=== PATIENT | male | born 1985 | race African-American/Black ===

== ENCOUNTER 2019-07-10 09:17 | Emergency (ER) | payer MEDICAID ==
[~2019-07-10] VITALS: Ht 185.4 cm; Wt 77.1 kg
--- NOTE | 2019-07-10 09:21 | NUR ---
PT BIB SELF FOR SI, PLAN TO RUN IN FRONT OF A BUS. +AUDITORY HALLUCINATION. PT IS AAOX4, NOT IN RESPIRATORY DISTRESS, HOOKED TO MONITOR, KEPT RESTED AND COMFORTABLE, WILL CONTINUE TO MONITOR.
--- NOTE | 2019-07-10 09:36 | NUR ---
SEEN AND EXAMINED BY
--- NOTE | 2019-07-10 09:45 | NUR ---
IV LINE ESTABLISHED, BLOOD DRAWNED AND SENT TO LAB.
[2019-07-10 09:47] LABS: BASOPHILS % (AUTO) 0.6 % (0.0-2.0); EOSINOPHILS % (AUTO) 0.2 % (0.0-6.0); HEMATOCRIT 39 % (39-51); HEMOGLOBIN 12.9 g/dL (13.5-17.5); LYMPHOCYTES # (AUTO) 1.9 /CMM (0.8-4.8); LYMPHOCYTES % (AUTO) 23.1 % (20.0-44.0); MEAN CORPUSCULAR HGB CONC 33 g/dl (31.0-36.0); MEAN CORPUSCULAR VOLUME 84 fL (80-96); MONOCYTES # (AUTO) 0.5 /CMM (0.1-1.30); MONOCYTES % (AUTO) 6.4 % (2.0-12.0); NEUTROPHILS # (AUTO) 5.8 /CMM (1.8-8.9); NEUTROPHILS % (AUTO) 69.7 % (43.0-81.0); PLATELET COUNT (AUTO) 452 /CMM (150-450); RED BLOOD CELL COUNT(AUTO) 4.56 MIL/uL (4.5-6.0); WHITE BLOOD COUNT (AUTO) 8.3 K/uL (4.3-11.0)
--- NOTE | 2019-07-10 09:48 | NUR ---
URINAL GIVEN BUT UNABLE TO PROVIDE URINE SPECIMEN.
[2019-07-10 09:54] LABS: CALCIUM, SERUM 8.7 mg/dL (8.5-10.1); CARBON DIOXIDE 28 mmol/L (21-32); CHLORIDE 104 mmol/L (98-107); GLUCOSE 88 mg/dL (74-106); SODIUM SERUM 141 mmol/L (136-145); UREA NITROGEN, BLOOD 7 mg/dL (7-18)
[2019-07-10 10:00] LABS: ALANINE AMINOTRANSFERASE 14 U/L (12-78); ALBUMIN 3.7 g/dL (3.4-5.0); ALCOHOL, BLOOD 147 mg/dL (0-0); ALKALINE PHOSPHATASE 70 U/L (46-116); ASPARTATE AMINOTRANSFERASE 18 U/L (15-37); BILIRUBIN,DIRECT 0.2 mg/dL (0.0-0.2); BILIRUBIN,TOTAL 0.7 mg/dL (0.2-1.0); TOTAL PROTEIN, SERUM 8.1 g/dL (6.4-8.2)
[2019-07-10] MEDS ORDERED: IV NS 0.9% 1,000 ML BAG IV ONE (10:00)
[2019-07-10 10:01] LABS: ACETAMINOPHEN 0 ug/ml (10-30); SALICYLATE < 0.2 mg/dL (2.8-20.0)
--- NOTE | 2019-07-10 10:40 | NUR ---
PADMA MCCLAIN CRISIS TEAM AT BEDSIDE FOR EVAL.
--- NOTE | 2019-07-10 12:45 | NUR ---
URINE SPECIMEN COLLECTED AND SENT TO LAB.
[2019-07-10 12:53] LABS: APPEARANCE,URINE Clear (CLEAR); BILIRUBIN,URINE Negative (NEGATIVE); BLOOD, URINE Negative Ery/uL (NEGATIVE); COLOR,URINE Yellow (YELLOW); KETONES,URINE Negative (NEGATIVE); LEUKOCYTE ESTERASE ,URINE Negative (NEGATIVE); NITRITE, URINE Negative (NEGATIVE); PROTEIN,URINE Negative (NEGATIVE); UGLUCOSE Negative (NEGATIVE)
--- NOTE | 2019-07-10 12:55 | NUR ---
FOOD TRAY PROVIDED.
--- NOTE | 2019-07-10 17:33 | NUR ---
MEGHANN CRAMER [id number] TRIP#[id number]
--- NOTE | 2019-07-10 17:51 | NUR ---
CALLED [facility] INTAKE BUT NO ANSWER.
--- NOTE | 2019-07-10 17:59 | NUR ---
REPORT GIVEN TO JOHNY MARQUEZ OF [facility] FOR [facility].
[2019-07-10 19:05] VITALS: BP 121/74
== END 2019-07-10 19:06 ==
LOC: ER 09:17
DX: R45.851 Suicidal ideations (principal); F20.9 Schizophrenia, unspecified; F10.129 Alcohol abuse with intoxication, unspecified; T40.5X1A Poisoning by cocaine, accidental (unintentional), initial encounter; Y92.89 Other specified places as the place of occurrence of the external cause; Y90.6 Blood alcohol level of 120-199 mg/100 ml
CPT/HCPCS: 36415; 80048; 80076; 80305; 80307 ×3; 80329; 81001; 85025; 99285; G0480; J7030 ×2; 81000-TC

== ENCOUNTER 2020-06-01 13:17 | Emergency (ER) | payer MEDICAID ==
[~2020-06-01] VITALS: Ht 185.4 cm; Wt 77.6 kg
--- NOTE | 2020-06-01 13:31 | NUR ---
OZZIE PURI FROM [facility] PRIOR TO VOLUNTARY ADMISSION TO [facility] VN, PATIENT STATES "I'M DEPRESSED AND HAVING THOUGHTS OF HURTING MYSELF OF RUNNING INTO TRAFFIC". TO ER BED 14,HOOKED TO MONITOR, CHANGED TO HOSP GOWN, WARM BLANKET PROVIDED, PATIENT AAOx4, BREATHING EVEN AND UNLABORED, AWAITING MD HUIZAR. SITTER AT BEDSIDE FOR SAFETY
--- NOTE | 2020-06-01 14:36 | NUR ---
DR SALMERON AT BEDSIDE
--- NOTE | 2020-06-01 15:01 | NUR ---
URINE SAMPLE COLLECTED AND SENT TO LAB
--- NOTE | 2020-06-01 15:08 | NUR ---
CLIENT SUCCESS SPECIALIST AT BEDSIDE
[2020-06-01 15:15] LABS: BASOPHILS % (AUTO) 0.5 % (0.0-2.0); EOSINOPHILS % (AUTO) 4.3 % (0.0-6.0); HEMATOCRIT 37 % (39-51); LYMPHOCYTES # (AUTO) 1.7 /CMM (0.8-4.8); LYMPHOCYTES % (AUTO) 28.5 % (20.0-44.0); MEAN CORPUSCULAR HGB CONC 33 g/dl (31.0-36.0); MEAN CORPUSCULAR VOLUME 89 fL (80-96); MONOCYTES # (AUTO) 0.7 /CMM (0.1-1.30); MONOCYTES % (AUTO) 12.1 % (2.0-12.0); NEUTROPHILS # (AUTO) 3.3 /CMM (1.8-8.9); NEUTROPHILS % (AUTO) 54.6 % (43.0-81.0); PLATELET COUNT (AUTO) 307 /CMM (150-450); RED BLOOD CELL COUNT(AUTO) 4.15 MIL/uL (4.5-6.0); WHITE BLOOD COUNT (AUTO) 6.1 K/uL (4.3-11.0)
[2020-06-01 15:19] LABS: APPEARANCE,URINE SLIGHTLY HAZY (CLEAR); BILIRUBIN,URINE SMALL (NEGATIVE); BLOOD, URINE Negative Ery/uL (NEGATIVE); COLOR,URINE Yellow (YELLOW); KETONES,URINE Trace (NEGATIVE); LEUKOCYTE ESTERASE ,URINE Negative (NEGATIVE); NITRITE, URINE Negative (NEGATIVE); PROTEIN,URINE Trace mg/dl (NEGATIVE); UGLUCOSE Negative (NEGATIVE)
[2020-06-01 15:33] LABS: ALANINE AMINOTRANSFERASE 17 U/L (12-78); ALBUMIN 3.2 g/dL (3.4-5.0); ALKALINE PHOSPHATASE 66 U/L (46-116); ASPARTATE AMINOTRANSFERASE 18 U/L (15-37); BILIRUBIN,DIRECT 0.1 mg/dL (0.0-0.2); BILIRUBIN,TOTAL 0.4 mg/dL (0.2-1.0); CALCIUM, SERUM 8.6 mg/dL (8.5-10.1); CARBON DIOXIDE 27 mmol/L (21-32); CHLORIDE 105 mmol/L (98-107); GLUCOSE 100 mg/dL (74-106); POTASSIUM 3.9 mmol/L (3.5-5.1); SODIUM SERUM 139 mmol/L (136-145); UREA NITROGEN, BLOOD 11 mg/dL (7-18)
[2020-06-01 15:37] LABS: ACETAMINOPHEN < 2 ug/ml (10-30); SALICYLATE < 2.8 mg/dL (2.8-20.0)
[2020-06-01 15:38] LABS: ALCOHOL, BLOOD < 3 mg/dL (0-0)
--- NOTE | 2020-06-01 16:12 | NUR ---
PATIENT IN BED AWAKE, WATCHING TELEVISION, HOOKED TO MONITOR, WILL CONTINUE TO MONITOR ACCORDINGLY. SITTER AT BEDSIDE
[2020-06-01 16:26] LABS: BACTERIA,URINE Rare /HPF (None Seen); RBC,URINE 0-2 /HPF (0-2); SQUAMOUS EPITHELIAL CELL,UR None Seen /HPF (None Seen); WBC,URINE 0-2 /HPF (0-3)
--- NOTE | 2020-06-01 18:42 | NUR ---
PATIENT IN BED AWAKE, WATCHING TELEVISION, HOOKED TO MONITOR, WILL CONTINUE TO MONITOR ACCORDINGLY. SITTER AT BEDSIDE
[2020-06-01 19:12] VITALS: BP 131/68
--- NOTE | 2020-06-01 19:12 | NUR ---
REPORT GIVEN TO GREGORIO MCCLAIN FOR [facility]
--- NOTE | 2020-06-01 19:17 | NUR ---
FAXED CLINIC[place] [facility].
--- NOTE | 2020-06-01 20:54 | NUR ---
RAMO HAGEN ACCEPTED [facility]/ [phone] UNIT 2 FOR REPORT.
--- NOTE | 2020-06-01 21:22 | NUR ---
ATTEMPTED TO GIVE REPORT AT [facility], NO ANSWER
--- NOTE | 2020-06-01 21:23 | NUR ---
REPORT GIVEN TO JOHNY SPRINGER [facility] FOR [facility]
--- NOTE | 2020-06-01 21:40 | NUR ---
[facility] CALLED FOR TRANSPORT RES# [id number].
--- NOTE | 2020-06-01 22:35 | NUR ---
[facility] [phone]
--- NOTE | 2020-06-02 00:46 | NUR ---
REPORT GIVEN TO EMS. PT STABLE FOR TRANSFER
== END 2020-06-02 00:47 ==
LOC: ER 13:21
DX: F28 Other psychotic disorder not due to a substance or known physiological condition (principal); F20.9 Schizophrenia, unspecified
CPT/HCPCS: 36415; 80048; 80076; 80305; 80307; 80329; 81001; 85025; 99285; G0480; 81000-TC

== ENCOUNTER 2020-07-28 13:49 | Emergency (ER) | payer MEDICAID ==
--- NOTE | 2020-07-28 15:20 | NUR ---
called - no answer
--- NOTE | 2020-07-28 15:30 | NUR ---
called - no answer Patient left without being seen by ER Physician
== END 2020-07-28 15:31 | disposition left against medical advice (07) ==
LOC: ER 13:53
DX: Z53.21 Procedure and treatment not carried out due to patient leaving prior to being seen by health care provider (principal)

== ENCOUNTER 2020-07-28 16:29 | Emergency (ER) | payer MEDICAID ==
[~2020-07-28] VITALS: Ht 180.3 cm; Wt 72.6 kg
--- NOTE | 2020-07-28 18:08 | NUR ---
CAME IN FOR SUICIADAL IDEATION WITH PLAN TO RUN INTO TRAFFIC- TO ER FOR EVALUATION AND TREATMENT. TO ER BED 12, HOOKED TO MONITOR, CHANGED TO HOSP GOWN, WARM BLANKET PROVIDED, PATIENT AAO x 4, BREATHING EVEN AND UNLABORED, AWAITING MD HUIZAR.
--- NOTE | 2020-07-28 18:12 | NUR ---
URINE SAMPLE COLLECTED AND SENT TO LAB.
--- NOTE | 2020-07-28 18:14 | NUR ---
BENOIT 1:1 - AT BEDSIDE CALLED [facility]
--- NOTE | 2020-07-28 18:15 | NUR ---
KHUSHI HELTON AT BEDSIDE FOR EVAL
[2020-07-28 19:05] LABS: APPEARANCE,URINE Clear (CLEAR); BILIRUBIN,URINE SMALL (NEGATIVE); BLOOD, URINE Negative Ery/uL (NEGATIVE); KETONES,URINE Trace (NEGATIVE); LEUKOCYTE ESTERASE ,URINE Negative (NEGATIVE); NITRITE, URINE Negative (NEGATIVE); PH,URINE 5.5 (5.0-8.0); PROTEIN,URINE Trace mg/dl (NEGATIVE); UGLUCOSE Negative (NEGATIVE); UROBILINOGEN,URINE 0.2 EU/dL (0.2)
[2020-07-28 19:12] LABS: COLOR,URINE DARK YELLOW (YELLOW)
[2020-07-28 19:16] LABS: BACTERIA,URINE None seen /HPF (None Seen); MUCUS,URINE Moderate /LPF (None Seen); RBC,URINE 0-2 /HPF (0-2); SQUAMOUS EPITHELIAL CELL,UR Few /HPF (None Seen); WBC,URINE 0-2 /HPF (0-3)
--- NOTE | 2020-07-28 19:25 | NUR ---
REPORT GIVEN TO SANG MCCLAIN FOR [facility]
[2020-07-28 19:54] LABS: BASOPHILS % (AUTO) 0.4 % (0.0-2.0); EOSINOPHILS % (AUTO) 3.7 % (0.0-6.0); HEMATOCRIT 38 % (39-51); HEMOGLOBIN 12.5 g/dL (13.5-17.5); LYMPHOCYTES # (AUTO) 2.6 /CMM (0.8-4.8); LYMPHOCYTES % (AUTO) 39.5 % (20.0-44.0); MEAN CORPUSCULAR HGB CONC 33 g/dl (31.0-36.0); MEAN CORPUSCULAR VOLUME 88 fL (80-96); MONOCYTES # (AUTO) 0.8 /CMM (0.1-1.30); MONOCYTES % (AUTO) 11.8 % (2.0-12.0); NEUTROPHILS % (AUTO) 44.6 % (43.0-81.0); PLATELET COUNT (AUTO) 359 /CMM (150-450); RED BLOOD CELL COUNT(AUTO) 4.32 MIL/uL (4.5-6.0); WHITE BLOOD COUNT (AUTO) 6.6 K/uL (4.3-11.0)
[2020-07-28 20:04] LABS: CALCIUM, SERUM 9.1 mg/dL (8.5-10.1); CARBON DIOXIDE 26 mmol/L (21-32); CHLORIDE 103 mmol/L (98-107); CREATININE 1.1 mg/dL (0.6-1.3); GLUCOSE 100 mg/dL (74-106); SODIUM SERUM 139 mmol/L (136-145); UREA NITROGEN, BLOOD 15 mg/dL (7-18)
[2020-07-28 20:11] LABS: ALANINE AMINOTRANSFERASE 24 U/L (12-78); ALBUMIN 3.3 g/dL (3.4-5.0); ALKALINE PHOSPHATASE 70 U/L (46-116); ASPARTATE AMINOTRANSFERASE 34 U/L (15-37); BILIRUBIN,DIRECT 0.3 mg/dL (0.0-0.2); TOTAL PROTEIN, SERUM 7.4 g/dL (6.4-8.2)
[2020-07-28 20:12] LABS: ACETAMINOPHEN < 2 ug/ml (10-30); ALCOHOL, BLOOD < 3 mg/dL (0-0); SALICYLATE < 2.8 mg/dL (2.8-20.0)
--- NOTE | 2020-07-28 23:30 | NUR ---
PER CJ FROM [facility] INTAKE, NO BEDS AVAILABLE AT THIS TIME
--- NOTE | 2020-07-29 07:06 | NUR ---
TRANSFER INFORMATION: PT ACCEPTED TO [facility] ACCEPTING MD: DR. DOMINGO NUMBER FOR REPORT: [phone]
--- NOTE | 2020-07-29 07:12 | NUR ---
CALLED [facility] FOR TRANSPORTATION. WILL CALL BACK WITH BELA
--- NOTE | 2020-07-29 07:18 | NUR ---
[facility] ETA [phone]
[2020-07-29 08:58] VITALS: BP 124/80
--- NOTE | 2020-07-29 09:28 | NUR ---
TRANSFERED TO [facility]. STABLE REPORT GIVEN TO
== END 2020-07-29 09:30 ==
LOC: ER 16:31
DX: R45.851 Suicidal ideations (principal); F19.10 Other psychoactive substance abuse, uncomplicated; F20.9 Schizophrenia, unspecified
CPT/HCPCS: 36415; 80048; 80076; 80305; 80307; 80329; 81001; 85025; 99285; G0480; 81000-TC

== ENCOUNTER 2020-08-11 10:52 | Emergency (ER) | payer MEDICAID ==
[~2020-08-11] VITALS: Ht 180.3 cm; Wt 68.0 kg
--- NOTE | 2020-08-11 11:00 | NUR ---
PT BIB SELF C/O SI "I WANT TO RUN THRU TRAFFIC" PT IS AAOX4, NOT IN RESPIRATORY DISTRESS, V/S STABLE, KEPT RESTED AND COMFORTABLE. SITTER AT BEDSIDE. WILL CONTINUE TO MONITOR.
--- NOTE | 2020-08-11 11:04 | NUR ---
CALLED [facility].
--- NOTE | 2020-08-11 11:20 | NUR ---
ER PHLEB AT BEDSIDE FOR BLOOD DRAW.
--- NOTE | 2020-08-11 11:24 | NUR ---
COVID SPECIMEN OBTAINED AND SENT TO LAB.
[2020-08-11 11:38] LABS: BASOPHILS # (AUTO) 0.1 /CMM (0.0-0.2); BASOPHILS % (AUTO) 0.6 % (0.0-2.0); EOSINOPHILS % (AUTO) 0.1 % (0.0-6.0); HEMATOCRIT 37 % (39-51); HEMOGLOBIN 12.1 g/dL (13.5-17.5); LYMPHOCYTES # (AUTO) 1.4 /CMM (0.8-4.8); LYMPHOCYTES % (AUTO) 16.5 % (20.0-44.0); MEAN CORPUSCULAR HGB CONC 32 g/dl (31.0-36.0); MEAN CORPUSCULAR VOLUME 87 fL (80-96); MONOCYTES # (AUTO) 0.7 /CMM (0.1-1.30); MONOCYTES % (AUTO) 8.7 % (2.0-12.0); NEUTROPHILS # (AUTO) 6.2 /CMM (1.8-8.9); NEUTROPHILS % (AUTO) 74.1 % (43.0-81.0); PLATELET COUNT (AUTO) 353 /CMM (150-450); RED BLOOD CELL COUNT(AUTO) 4.28 MIL/uL (4.5-6.0); WHITE BLOOD COUNT (AUTO) 8.4 K/uL (4.3-11.0)
[2020-08-11 12:01] LABS: ALANINE AMINOTRANSFERASE 23 U/L (12-78); ALBUMIN 3.9 g/dL (3.4-5.0); ALCOHOL, BLOOD 38 mg/dL (0-0); ALKALINE PHOSPHATASE 58 U/L (46-116); ASPARTATE AMINOTRANSFERASE 29 U/L (15-37); BILIRUBIN,DIRECT 0.2 mg/dL (0.0-0.2); BILIRUBIN,TOTAL 0.6 mg/dL (0.2-1.0); CALCIUM, SERUM 8.6 mg/dL (8.5-10.1); CARBON DIOXIDE 26 mmol/L (21-32); CHLORIDE 100 mmol/L (98-107); GLUCOSE 87 mg/dL (74-106); POTASSIUM 3.8 mmol/L (3.5-5.1); SODIUM SERUM 136 mmol/L (136-145); UREA NITROGEN, BLOOD 8 mg/dL (7-18)
--- NOTE | 2020-08-11 12:08 | NUR ---
URINE SPECIMEN COLLECTED AND SENT TO LAB.
[2020-08-11 12:52] LABS: ACETAMINOPHEN < 10 ug/ml (10-30); SALICYLATE < 2.8 mg/dL (2.8-20.0)
[2020-08-11 13:01] LABS: APPEARANCE,URINE CLEAR (CLEAR); BILIRUBIN,URINE NEGATIVE (NEGATIVE); BLOOD, URINE NEGATIVE Ery/uL (NEGATIVE); COLOR,URINE YELLOW (YELLOW); KETONES,URINE NEGATIVE (NEGATIVE); LEUKOCYTE ESTERASE ,URINE SMALL (NEGATIVE); NITRITE, URINE NEGATIVE (NEGATIVE); PROTEIN,URINE NEGATIVE (NEGATIVE); UGLUCOSE NEGATIVE (NEGATIVE); UROBILINOGEN,URINE 0.2 EU/dL (0.2)
[2020-08-11 13:14] LABS: BACTERIA,URINE Rare /HPF (None Seen); RBC,URINE 0-2 /HPF (0-2); SQUAMOUS EPITHELIAL CELL,UR Rare /HPF (None Seen)
--- NOTE | 2020-08-11 15:00 | NUR ---
ASSESSED PT ON BED ASLEEP BUT EASILY AROUSABLE, NOT IN RESPIRATORY DISTRESS, V/S STABLE, WILL CONTINUE TO MONITOR.
--- NOTE | 2020-08-11 18:15 | NUR ---
[facility], NO [facility] AVAILABLE YET
--- NOTE | 2020-08-11 19:05 | NUR ---
PT AAOX4, RESPIRATIONS EVEN AND UNLABORED ON RA W/ NAD NOTED. PT HAS NO MEDICAL COMPLAINTS AT THIS TIME. FOOD TRAY ORDERED. CALL LIGHT WITHIN REACH. SITTER AT BEDSIDE FOR SAFETY. WILL CONTINUE TO MONITOR
--- NOTE | 2020-08-11 21:20 | NUR ---
pt accepted at [facility]. accepting dr. butts report #[phone] ext. [phone]
--- NOTE | 2020-08-11 22:20 | NUR ---
REPORT GIVEN TO JOHNY THOMAS FOR [facility] [address]
--- NOTE | 2020-08-11 22:25 | NUR ---
AMWEST 15 MINS
--- NOTE | 2020-08-11 23:07 | NUR ---
Patient is resting comfortably in bed with eyes closed. Easily aroused. VSS
[2020-08-11 23:16] VITALS: BP 136/84
--- NOTE | 2020-08-11 23:37 | NUR ---
REPORT GIVEN TO EMS, PT STABLE FOR TRANSFER
== END 2020-08-11 23:37 ==
LOC: ER 10:53
DX: R45.851 Suicidal ideations (principal); Z82.49 Family history of ischemic heart disease and other diseases of the circulatory system; F20.9 Schizophrenia, unspecified; F17.200 Nicotine dependence, unspecified, uncomplicated; Z20.828 Contact with and (suspected) exposure to other viral communicable diseases
CPT/HCPCS: 36415; 80048; 80076; 80299; 80307 ×2; 80320; 81001; 85025; 87426; 99285; C9803; 81000-TC; G0480

== ENCOUNTER 2020-09-04 01:53 | Emergency (ER) | payer MEDICAID ==
[~2020-09-04] VITALS: Ht 185.4 cm; Wt 72.6 kg
--- NOTE | 2020-09-04 02:00 | NUR ---
PT BIBSELF C/O SUICIDAL IDEATION WITH PLAN TO RUN INTO TRAFFIC. PT AAOX4. VITAL SIGNS STABLE. RESPIRATIONS EVEN AND UNLABORED. AMBULATORY WITH STEADY GAIT. NO ACUTE DISTRESS NOTED AT THIS TIME. SUICIDAL PRECAUTIONS INITIATED. PT PLACED IN GOWN, BELONGINGS COLLECTED AND LOCKED IN PATIENT LOCKER. SITTER AT BEDSIDE. WILL CONTINUE TO MONITOR
--- NOTE | 2020-09-04 02:25 | NUR ---
URINE COLLECTED AND SENT TO LAB
--- NOTE | 2020-09-04 02:48 | NUR ---
EMPLOYEE RELATIONS ASSISTANT AT BEDSIDE FOR BLOOD DRAW
[2020-09-04 02:50] LABS: BILIRUBIN,URINE Negative (NEGATIVE); BLOOD, URINE Negative Ery/uL (NEGATIVE); COLOR,URINE Yellow (YELLOW); LEUKOCYTE ESTERASE ,URINE Negative (NEGATIVE); NITRITE, URINE Negative (NEGATIVE); PH,URINE 5.5 (5.0-8.0); PROTEIN,URINE Negative (NEGATIVE); UGLUCOSE Negative (NEGATIVE)
--- NOTE | 2020-09-04 02:51 | NUR ---
COVID SWAB COLLECTED AND SENT TO THE LAB.
[2020-09-04 02:58] LABS: CALCIUM, SERUM 8.9 mg/dL (8.5-10.1); CARBON DIOXIDE 27 mmol/L (21-32); CHLORIDE 107 mmol/L (98-107); CREATININE 1.1 mg/dL (0.6-1.3); GLUCOSE 75 mg/dL (74-106); SODIUM SERUM 142 mmol/L (136-145); UREA NITROGEN, BLOOD 11 mg/dL (7-18)
[2020-09-04 03:04] LABS: ALANINE AMINOTRANSFERASE 22 U/L (12-78); ALBUMIN 3.7 g/dL (3.4-5.0); ALCOHOL, BLOOD 132 mg/dL (0-0); ALKALINE PHOSPHATASE 68 U/L (46-116); ASPARTATE AMINOTRANSFERASE 34 U/L (15-37); BILIRUBIN,DIRECT 0.2 mg/dL (0.0-0.2); BILIRUBIN,TOTAL 0.8 mg/dL (0.2-1.0); TOTAL PROTEIN, SERUM 8.3 g/dL (6.4-8.2)
[2020-09-04 03:05] LABS: ACETAMINOPHEN < 10 ug/ml (10-30)
[2020-09-04 03:09] LABS: BASOPHILS # (AUTO) 0.1 /CMM (0.0-0.2); BASOPHILS % (AUTO) 0.7 % (0.0-2.0); EOSINOPHILS % (AUTO) 0.8 % (0.0-6.0); HEMATOCRIT 41 % (39-51); HEMOGLOBIN 13.3 g/dL (13.5-17.5); LYMPHOCYTES # (AUTO) 3.4 /CMM (0.8-4.8); LYMPHOCYTES % (AUTO) 36.5 % (20.0-44.0); MEAN CORPUSCULAR HGB CONC 33 g/dl (31.0-36.0); MEAN CORPUSCULAR VOLUME 88 fL (80-96); MONOCYTES # (AUTO) 0.8 /CMM (0.1-1.30); MONOCYTES % (AUTO) 8.8 % (2.0-12.0); NEUTROPHILS # (AUTO) 4.9 /CMM (1.8-8.9); NEUTROPHILS % (AUTO) 53.2 % (43.0-81.0); PLATELET COUNT (AUTO) 479 /CMM (150-450); RED BLOOD CELL COUNT(AUTO) 4.65 MIL/uL (4.5-6.0); WHITE BLOOD COUNT (AUTO) 9.2 K/uL (4.3-11.0)
[2020-09-04 03:18] LABS: BACTERIA,URINE None seen /HPF (None Seen); RBC,URINE 0-2 /HPF (0-2); SQUAMOUS EPITHELIAL CELL,UR Rare /HPF (None Seen); URINE AMORPHOUS URATE Few /HPF (None Seen); WBC,URINE 0-2 /HPF (0-3)
--- NOTE | 2020-09-04 04:15 | NUR ---
CLINICAL INFORMATION FAXED TO [facility]
--- NOTE | 2020-09-04 06:11 | NUR ---
PATIENT IS AWAKE, AAOX4. NO SOB. BREATHING EVENLY AND UNLABORED ON ROOM AIR. CONNECTED TO THE MONITOR. CURRENTLY WATCHING TELEVISION.
--- NOTE | 2020-09-04 08:52 | NUR ---
This SW contacted Delfino at [facility] for intake follow up regarding this patient. Per Delfino, patient clinicals have not been received. This SW refaxed clinicals to [facility] Intake . Plan:This health social work professor will wait to hear back from [facility] intake regarding status of referral. This health social work professor will follow-up with [facility] if status update is not provided.
--- NOTE | 2020-09-04 11:00 | NUR ---
This SW contacted Roseann at [facility] Int[facility] regarding referral for this patient. Per Roseann, patient has been accepted to [facility] [address] [place] [address]. Patient is going to [address]. Plan: ED RN to give report to Branden .
--- NOTE | 2020-09-04 12:10 | NUR ---
REPORT GIVEN TO RHONA BARAKAT [facility] FOR [facility]
--- NOTE | 2020-09-04 12:18 | NUR ---
[facility]ED [facility] [phone] [facility] CAN NOT TAKE PT BLS. RECOMMENDED TO CALL [facility] [phone] OR [facility] [phone]
--- NOTE | 2020-09-04 12:38 | NUR ---
[facility] TO GET TRANSPORT
--- NOTE | 2020-09-04 13:27 | NUR ---
MEGHANN CALLED [facility] # [id number] ETA [phone]
--- NOTE | 2020-09-04 14:27 | NUR ---
report given to emt going to bárbara fierro, in no distress. Denies any pain at this time.
[2020-09-04 14:28] VITALS: BP 118/74
== END 2020-09-04 14:29 ==
LOC: ER 01:57
DX: R45.851 Suicidal ideations (principal); Z20.828 Contact with and (suspected) exposure to other viral communicable diseases; F20.9 Schizophrenia, unspecified; F17.200 Nicotine dependence, unspecified, uncomplicated; Z72.89 Other problems related to lifestyle
CPT/HCPCS: 36415; 80048; 80076; 80299; 80307; 80320 ×2; 81001; 85025; 87426; 99285; C9803; 81000-TC; G0480